=== PATIENT | female | born 2000 | race Two or more races ===

== ENCOUNTER 2023-06-16 12:07 | Emergency (ER) | payer OTHER, SELFPAY ==
[2023-06-16 12:39] LABS: Bilirubin Neg (Negative); Blood, Urine 150 (Negative); Glucose, Urine (Dipstick) Normal (Negative); Ketone, Urine 150 mg/dL (Negative); Leukocyte Negative (Negative); Nitrite Negative (Negative); Protein, Urine (Dipstick) 30 mg/dl (Neg-Trace)
[2023-06-16 12:40] LABS: Clarity Slightly Cloudy (Clear)
[2023-06-16 12:41] LABS: Pregnancy Test - Urine (BHCG) Negative (Negative); Pregu Control Background? CLEAR/WHITE (CLR/WHITE); Pregu Control Bar Appear? YES (CONTROL BAR)
[2023-06-16 12:52] LABS: CAUTI Indications for Culture Dysuria,urgency,freq
[2023-06-16 12:53] LABS: Bacteria/HPF 3+ HPF (None Seen)
[2023-06-16 12:56] LABS: Mucous/LPF 2+ LPF (<2+)
[2023-06-16 12:58] LABS: Urine Culture Reflex No No
[2023-06-16] MEDS ORDERED: Acetaminophen 500 MG TAB ONE (14:58)
[2023-06-16 15:43] LABS: SARS-CoV-2 NAA Rapid Test Not Detected (NotDetected)
== END 2023-06-16 16:13 | disposition home or self-care (01) ==
LOC: CSHERS 12:07
DX: J10.1 Influenza due to other identified influenza virus with other respiratory manifestations (principal); R30.0 Dysuria
CPT/HCPCS: 81001; 81025; 87086; 87480; 87510; 87660; 99283